=== PATIENT | female | born 1990 | race Caucasian/White ===

== ENCOUNTER 2019-10-12 20:18 | Emergency (ER) | payer BC ==
[~2019-10-12] VITALS: Ht 162.6 cm; Wt 54.4 kg
--- NOTE | 2019-10-12 20:44 | NUR ---
BIBS W/ FAMILY. TO ER BED 10. AAOX4. NO RESP DISTRESS NOTED. AMBULATORY. C/O RUQ ABDOMINAL PAIN SINCE YESTERDAY. PT RATES HER PAIN 8/1O. PT REPORTS MUTIPLE EPISODES OF VOMMITING AND NAUSEA. MD WAS AT BEDSIDE FOR EVAL. ORDERS, RECEIVED NOTED AN CARRIED OUT
[2019-10-12 20:45] LABS: APPEARANCE,URINE Clear (CLEAR); BILIRUBIN,URINE MODERATE (NEGATIVE); BLOOD, URINE Negative Ery/uL (NEGATIVE); COLOR,URINE Amber (YELLOW); KETONES,URINE 40 (NEGATIVE); LEUKOCYTE ESTERASE ,URINE Negative (NEGATIVE); NITRITE, URINE Negative (NEGATIVE); PROTEIN,URINE 100 mg/dl (NEGATIVE); UGLUCOSE Negative (NEGATIVE); UROBILINOGEN,URINE 0.2 EU/dL (0.2)
[2019-10-12 20:46] LABS: PH,URINE >9.0 (5.0-8.0)
--- NOTE | 2019-10-12 20:46 | NUR ---
URINE SENT OT LAB
[2019-10-12] MEDS ORDERED: ONDANSETRON HCL/PF 4 MG/2 ML VIAL ONE (20:49)
[2019-10-12] MEDS ORDERED: MAG HYDROX/AL HYDROX/SIMETH 30 ML UDC ONE (20:49)
[2019-10-12] MEDS ORDERED: LIDOCAINE VISCOUS 2% UD 15 ML UDC ONE (20:49)
[2019-10-12] MEDS ORDERED: KETOROLAC TROMETHAMINE 15 MG/ML VIAL ONE (20:49)
[2019-10-12 20:59] LABS: BASOPHILS % (AUTO) 0.7 % (0.0-2.0); EOSINOPHILS % (AUTO) 2.5 % (0.0-6.0); HEMATOCRIT 40 % (33-45); LYMPHOCYTES # (AUTO) 1.5 /CMM (0.8-4.8); LYMPHOCYTES % (AUTO) 23.9 % (20.0-44.0); MEAN CORPUSCULAR HGB CONC 33 g/dl (31.0-36.0); MEAN CORPUSCULAR VOLUME 76 fL (82-100); MONOCYTES # (AUTO) 0.4 /CMM (0.1-1.30); MONOCYTES % (AUTO) 6.5 % (2.0-12.0); NEUTROPHILS # (AUTO) 4.1 /CMM (1.8-8.9); NEUTROPHILS % (AUTO) 66.4 % (43.0-81.0); PLATELET COUNT (AUTO) 227 /CMM (150-450); RED BLOOD CELL COUNT(AUTO) 5.23 MIL/uL (4.0-5.2); WHITE BLOOD COUNT (AUTO) 6.2 K/uL (4.3-11.0)
[2019-10-12] MEDS ORDERED: KETOROLAC TROMETHAMINE INJ 30 MG/ML VIAL IV ONE (21:00)
[2019-10-12] MEDS ORDERED: LIDOCAINE VISCOUS 2% UD 15 ML UDC MM ONE (21:00)
[2019-10-12] MEDS ORDERED: IV NS 0.9% 1,000 ML BAG IV ONE (21:00)
[2019-10-12] MEDS ORDERED: MAG HYDROX/AL HYDROX/SIMETH 30 ML UDC PO ONE (21:00)
[2019-10-12] MEDS ORDERED: ONDANSETRON HCL/PF 4 MG/2 ML VIAL IVP ONE (21:00)
--- NOTE | 2019-10-12 21:00 | NUR ---
ADDENDUM: Intravenous End Time Documentation: Normal saline 1 liter (IV-WO) : start time: 2100 ; end time: 2200 : IV site: RAC #20 Port # 1
--- NOTE | 2019-10-12 21:01 | NUR ---
RECTAL TEMP OBTAINED BY JCARLOS GARCIA. RECTAL TEMP 100.1. REPORTED TO MD. SCHULTZ
[2019-10-12 21:10] LABS: BACTERIA,URINE Rare /HPF (None Seen); MUCUS,URINE Many /LPF (None Seen); RBC,URINE NONE SEEN /HPF (0-2); SQUAMOUS EPITHELIAL CELL,UR Moderate /HPF (None Seen); WBC,URINE NONE SEEN /HPF (0-3)
[2019-10-12 21:16] LABS: ALBUMIN 3.9 g/dL (3.4-5.0); BILIRUBIN,DIRECT 3.3 mg/dL (0.0-0.2); BILIRUBIN,TOTAL 4.3 mg/dL (0.2-1.0); CALCIUM, SERUM 9.3 mg/dL (8.5-10.1); CREATININE 0.8 mg/dL (0.6-1.3); POTASSIUM 3.1 mmol/L (3.5-5.1); TOTAL PROTEIN, SERUM 7.5 g/dL (6.4-8.2)
--- NOTE | 2019-10-12 21:31 | NUR ---
us at bedside
--- NOTE | 2019-10-12 22:00 | NUR ---
CALLED DR KERRY GUILLERMO FOR THIS PATIENT, SPEAKING WITH DR TARANGO
--- NOTE | 2019-10-12 22:11 | NUR ---
GAVE MOVESHEET TO ADMITTING FOR INSURANCE AUTHORIZATION
[2019-10-12] MEDS ORDERED: PIPERACILLIN /TAZOBACTAM 3.375 G VIAL IV ONE (22:28)
[2019-10-12] MEDS ORDERED: HYDROMORPHONE 1 MG/1 ML DISP.SYRIN ONE (22:28)
[2019-10-12] MEDS ORDERED: HYDROMORPHONE INJ 0.5 MG/0.5 ML SYRINGE IV ONE (22:30)
[2019-10-12] MEDS ORDERED: PIPERACILLIN /TAZOBACTAM 3.375 G in IV D5W 50 ML IV ONE (22:30)
--- NOTE | 2019-10-13 00:30 | NUR ---
CALLED [facility] FOR TRANSPORTATION, ETA [id number] TRIP NUMBER [id number]
--- NOTE | 2019-10-13 01:03 | NUR ---
TRANSFER INFORMATION: PT WILL BE TRANSFERRED TO [facility] BED ASSIGNMENT: [id number] NUMBER FOR REPORT: [phone] ACCEPTING MD: DR. MEEKS
[2019-10-13 01:05] VITALS: BP 110/62
--- NOTE | 2019-10-13 01:21 | NUR ---
REPORT GIVEN TO JCARLOS GATES FOR ELOISA AT THE [facility] [place]. REPORT IS GIVEN TO CHARISSA 113 STAFF GIVEN WELL
== END 2019-10-13 01:30 | disposition short-term general hospital (02) ==
LOC: ER 20:22
DX: K80.50 Calculus of bile duct without cholangitis or cholecystitis without obstruction (principal); R11.10 Vomiting, unspecified
CPT/HCPCS: 36415; 76705; 80048; 80076; 81001; 83690; 84703; 85025; 85730; 87081; 96361; 96365; 96375; 99285; J1170; J1885; J2405; J2543 ×2; J7030; J7060; 81000-TC